=== PATIENT | male | born 1980 | race Caucasian/White ===

== ENCOUNTER 2021-06-08 11:55 | Emergency (ER) | payer SELFPAY ==
[2021-06-08] MEDS ORDERED: diphenhydrAMINE 50 MG/ML SDV IVPUSH PRN (12:30)
[2021-06-08] MEDS ORDERED: methylPREDNISolone Sodium Succinate 125 MG/2 ML SDV IVPUSH PRN (12:30)
[2021-06-08] MEDS ORDERED: EPINEPHrine 1 MG/ML SDV IM PRN (12:30)
[2021-06-08] MEDS ORDERED: Sodium Chloride 0.9% 10 ML Syringe FLUSH SCH (12:30)
[2021-06-08] MEDS ORDERED: Dexamethasone 10 MG/ML SDV IVPUSH ONE (12:30)
[2021-06-08] MEDS ORDERED: Famotidine 20 MG/2 ML SDV IVPUSH PRN (12:30)
[2021-06-08] MEDS ORDERED: Sodium Chloride 0.9% 10 ML Syringe FLUSH PRN (12:30)
--- NOTE | 2021-06-08 12:43 | EDM.PDOC ---
ED HPI GENERAL MEDICAL PROBLEM - General Chief Complaint: Respiratory Problem Stated Complaint: COVID +/WORSENING SYMPTOMS Time Seen by Provider: 06/08/21 12:17 Source of Information: Reports: Patient, RN Notes Reviewed History Limitations: Reports: No Limitations - History of Present Illness INITIAL COMMENTS - FREE TEXT/NARRATIVE: Patient is a 41-year-old male who presents to the ED for his ongoing COVID-19 illness. Patient started to get ill Friday, June 04, 2021, went to the [place] walk-in clinic on June 05, 2021 and was told he had COVID-19. Patient notes since then he has had increasing symptoms, his fever has been somewhat high at home, roughly 100.3 F, he has been taking some acetaminophen for this and his last dose was last night. Checked his oxygen this morning, and he states that his oximeter read 85%, so he became concerned and presented to the ER for management. Patient does have a dry intermittent cough, he is not having any sputum production with this. Patient states he has had fever, but no chills, he has had a cough with shortness of breath, but no nausea/vomiting/diarrhea. 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 Right Eye Pain Score (Numeric/FACES): 6 Chest Pain Score (Numeric/FACES): 4 - Related Data Allergies Allergy/AdvReac Type Severity Reaction Status Date / Time No Known Allergies Allergy Verified 06/08/21 12:15 Home Meds: Home Meds Escitalopram [Lexapro] 30 mg PO DAILY 06/08/21 [History] Gabapentin [Neurontin] 300 mg PO DAILY 06/08/21 [History] dexAMETHasone [Decadron] 6 mg PO DAILY 9 Days #9 tablet 06/08/21 [Rx] Past Medical History Psychiatric History: Reports: Anxiety, Depression - Infectious Disease History Infectious Disease History: Reports: Novel Coronavirus (06/05/2021) Social & Family History - Tobacco Use Tobacco Use Status *Q: Never Tobacco User - Caffeine Use Caffeine Use: Reports: Coffee, Soda, Tea - Recreational Drug Use Recreational Drug Use: No ED ROS GENERAL - Review of Systems Review Of Systems: Comprehensive ROS is negative, except as noted in HPI. ED EXAM, GENERAL - Physical Exam Exam: See Below Exam Limited By: No Limitations General Appearance: Alert, WD/WN, No Apparent Distress Respiratory/Chest: No Respiratory Distress, Lungs Clear, Normal Breath Sounds, No Accessory Muscle Use, Chest Non-Tender Cardiovascular: Normal Peripheral Pulses, Regular Rate, Rhythm, No Edema Peripheral Pulses: 2+: Radial (L), Radial (R) Extremities: Normal Inspection, Normal Capillary Refill Neurological: Alert, Oriented, Normal Cognition, No Motor/Sensory Deficits Psychiatric: Normal Affect, Normal Mood Skin Exam: Warm, Dry, Intact, Normal Color, No Rash #1 Interpretation EKG Date: 06/08/21 Time: 12:47 Rhythm: NSR Rate (Beats/Min): 76 Hunter: LAD-Left Hunter Deviation (-17 ) P-Wave: Present QRS: RBBB (atypical) ST-T: Normal QT: Normal Comparison: NA - No Prior EKG EKG Interpretation Comments: IVCD Course - Vital Signs Last Recorded V/S: Last Vital Signs Temp 98.0 F 06/08/21 12:19 Pulse 75 06/08/21 12:19 Resp 20 06/08/21 12:19 BP 118/80 06/08/21 12:19 Pulse Ox 94 L 06/08/21 12:19 - Orders/Labs/Meds Orders: Active Orders 24 hr Category Date Time Status Peripheral IV Care [RC] . DIRECTED Care 06/08/21 12:30 Active Vital Signs [RC] Q15M Care 06/08/21 12:30 Active Chest 1V Frontal [CR] Stat Exams 06/08/21 12:29 Taken EPINEPHrine [Adrenalin] Med 06/08/21 12:30 Active 0.3 mg IM ONETIME PRN Famotidine [Pepcid] Med 06/08/21 12:30 Active 20 mg IVPUSH ONETIME PRN Sodium Chloride 0.9% [Saline Flush] Med 06/08/21 12:30 Active 10 ml FLUSH ASDIRECTED PRN Sodium Chloride 0.9% [Saline Flush] Med 06/08/21 12:30 Active 30 ml FLUSH ASDIRECTED diphenhydrAMINE [Benadryl] Med 06/08/21 12:30 Active 50 mg IVPUSH ONETIME PRN methylPREDNISolone Sod Succ [Solu-MEDROL] Med 06/08/21 12:30 Active 125 mg IVPUSH ONETIME PRN Peripheral IV Insertion Adult [OM.PC] Routine Oth 06/08/21 12:30 Ordered Medication Orders Diphenhydramine HCl (Diphenhydramine 50 Mg/Ml Sdv) 50 mg IVPUSH ONETIME PRN PRN Reason: hypersensitivity reaction Epinephrine HCl (Epinephrine 1 Mg/Ml Sdv) 0.3 mg IM ONETIME PRN PRN Reason: hypersensitivity reaction Famotidine (Famotidine 20 Mg/2 Ml Sdv) 20 mg IVPUSH ONETIME PRN PRN Reason: hypersensitivity reaction Methylprednisolone Sodium Succinate (Methylprednisolone Sodium Succinate 125 Mg/2 Ml Sdv) 125 mg IVPUSH ONETIME PRN PRN Reason: hypersensitivity reaction Sodium Chloride (Sodium Chloride 0.9% 10 Ml Syringe) 30 ml FLUSH ASDIRECTED WINSTON Sodium Chloride (Sodium Chloride 0.9% 10 Ml Syringe) 10 ml FLUSH ASDIRECTED PRN PRN Reason: Keep Vein Open Labs: Laboratory Tests 06/08/21 06/08/21 06/08/21 Range/Units 13:00 13:00 13:00 WBC 4.61 (4.23-9.07) K/mm3 RBC 5.21 (4.63-6.08) M/mm3 Hgb 16.9 (13.7-17.5) gm/dl Hct 50.2 (40.1-51.0) % MCV 96.4 H (79.0-92.2) fl MCH 32.4 H (25.7-32.2) pg MCHC 33.7 (32.2-35.5) g/dl RDW Std Deviation 48.2 H (35.1-43.9) fL Plt Count 96 L (163-337) K/mm3 MPV 12.0 (9.4-12.3) fl Neut % (Auto) 60.8 (34.0-67.9) % Lymph % (Auto) 28.6 (21.8-53.1) % [place] % (Auto) 10.0 (5.3-12.2) % Eos % (Auto) 0 L (0.8-7.0) Baso % (Auto) 0.4 (0.1-1.2) % Neut # (Auto) 2.80 (1.78-5.38) K/mm3 Lymph # (Auto) 1.32 (1.32-3.57) K/mm3 [place] # (Auto) 0.46 (0.30-0.82) K/mm3 Eos # (Auto) 0.00 L (0.04-0.54) K/mm3 Baso # (Auto) 0.02 (0.01-0.08) K/mm3 Manual Slide Review Abnormal smear PT 10.1 (9.7-12.0) SECONDS INR 0.94 APTT 27.6 (21.7-31.4) SECONDS D-Dimer, Quantitative 0.73 H (0.19-0.50) mg/L Sodium (136-145) mEq/L Potassium (3.5-5.1) mEq/L Chloride (98-107) mEq/L Carbon Dioxide (21-32) mEq/L Anion Gap (5-15) BUN (7-18) mg/dL Creatinine (0.7-1.3) mg/dL Est Cr Clr Drug Dosing mL/min Estimated GFR (MDRD) (>60) mL/min BUN/Creatinine Ratio (14-18) Glucose (70-99) mg/dL Calcium (8.5-10.1) mg/dL Magnesium (1.8-2.4) mg/dL Total Bilirubin (0.2-1.0) mg/dL AST (15-37) U/L ALT (16-63) U/L Alkaline Phosphatase (46-116) U/L Troponin I (0.00-0.056) ng/mL C-Reactive Protein 2.7 H* (<1.0) mg/dL NT-Pro-B Natriuret Pep (0-125) pg/mL Total Protein (6.4-8.2) g/dl Albumin (3.4-5.0) g/dl Globulin gm/dL Albumin/Globulin Ratio (1-2) 06/08/21 06/08/21 Range/Units 13:00 13:00 WBC (4.23-9.07) K/mm3 RBC (4.63-6.08) M/mm3 Hgb (13.7-17.5) gm/dl Hct (40.1-51.0) % MCV (79.0-92.2) fl MCH (25.7-32.2) pg MCHC (32.2-35.5) g/dl RDW Std Deviation (35.1-43.9) fL Plt Count (163-337) K/mm3 MPV (9.4-12.3) fl Neut % (Auto) (34.0-67.9) % Lymph % (Auto) (21.8-53.1) % [place] % (Auto) (5.3-12.2) % Eos % (Auto) (0.8-7.0) Baso % (Auto) (0.1-1.2) % Neut # (Auto) (1.78-5.38) K/mm3 Lymph # (Auto) (1.32-3.57) K/mm3 [place] # (Auto) (0.30-0.82) K/mm3 Eos # (Auto) (0.04-0.54) K/mm3 Baso # (Auto) (0.01-0.08) K/mm3 Manual Slide Review PT (9.7-12.0) SECONDS INR APTT (21.7-31.4) SECONDS D-Dimer, Quantitative (0.19-0.50) mg/L Sodium 142 (136-145) mEq/L Potassium 3.6 (3.5-5.1) mEq/L Chloride 103 (98-107) mEq/L Carbon Dioxide 33 H (21-32) mEq/L Anion Gap 9.6 (5-15) BUN 9 (7-18) mg/dL Creatinine 0.9 (0.7-1.3) mg/dL Est Cr Clr Drug Dosing 118.99 mL/min Estimated GFR (MDRD) > 60 (>60) mL/min BUN/Creatinine Ratio 10.0 L (14-18) Glucose 86 (70-99) mg/dL Calcium 8.5 (8.5-10.1) mg/dL Magnesium 2.4 (1.8-2.4) mg/dL Total Bilirubin 0.5 (0.2-1.0) mg/dL AST 35 (15-37) U/L ALT 28 (16-63) U/L Alkaline Phosphatase 65 (46-116) U/L Troponin I < 0.017 (0.00-0.056) ng/mL C-Reactive Protein (<1.0) mg/dL NT-Pro-B Natriuret Pep 28 (0-125) pg/mL Total Protein 7.5 (6.4-8.2) g/dl Albumin 3.4 (3.4-5.0) g/dl Globulin 4.1 gm/dL Albumin/Globulin Ratio 0.8 L (1-2) Meds: Medications Generic Name Dose Route Start Last Admin Trade Name Freq PRN Reason Stop Dose Admin Diphenhydramine HCl 50 mg 06/08/21 12:30 Diphenhydramine 50 Mg/Ml Sdv IVPUSH ONETIME PRN hypersensitivity reaction Epinephrine HCl 0.3 mg 06/08/21 12:30 Epinephrine 1 Mg/Ml Sdv IM ONETIME PRN hypersensitivity reaction Famotidine 20 mg 06/08/21 12:30 Famotidine 20 Mg/2 Ml Sdv IVPUSH ONETIME PRN hypersensitivity reaction Methylprednisolone Sodium Succinate 125 mg 06/08/21 12:30 Methylprednisolone Sodium Succinate 125 Mg/2 Ml Sdv IVPUSH ONETIME PRN hypersensitivity reaction Sodium Chloride 30 ml 06/08/21 12:30 Sodium Chloride 0.9% 10 Ml Syringe FLUSH ASDIRECTED WINSTON Sodium Chloride 10 ml 06/08/21 12:30 Sodium Chloride 0.9% 10 Ml Syringe FLUSH ASDIRECTED PRN Keep Vein Open Discontinued Medications Generic Name Dose Route Start Last Admin Trade Name Freq PRN Reason Stop Dose Admin Acetaminophen 975 mg 06/08/21 13:48 06/08/21 13:54 Acetaminophen 325 Mg Tab PO 06/08/21 13:49 975 mg NOW ONE Administration Dexamethasone 6 mg 06/08/21 12:30 06/08/21 13:04 Dexamethasone 10 Mg/Ml Sdv IVPUSH 06/08/21 12:31 6 mg ONETIME ONE Administration CASIRIVIMAB/IMDEVIMAB 10 ml/ 110 mls @ 220 mls/hr 06/08/21 12:30 06/08/21 13:08 Sodium Chloride IV 06/08/21 12:59 220 mls/hr ONETIME ONE Administration - Re-Assessments/Exams Free Text/Narrative Re-Assessment/Exam: 06/08/21 12:42 Patient presents to the ER for his ongoing COVID-19 symptoms, we will go ahead and get IV placed, get a chest x-ray, and some basic labs for ongoing management. Patient states that he has had some issues at time with elevated BP, but is not medication for this. I spoke with the patient to provide information about Regeneron treatment. I offered them the "Patient and caregiver NATALIA Regeneron fact sheet" to read and review. I stated that the drug has been approved by an emergency use authorization (EUA) process and has not been fully FDA reviewed or approved. The patient meets the EUA requirements. I discussed there are other potential treatment options that are currently not FDA approved to treat COVID-19. I did offer an opportunity to ask questions and all questions were answered. The patient voiced understanding and agreed to proceed with the treatment. 06/08/21 13:32 This x-ray does seem concerning for COVID pneumonia, there are some diffuse patchy infiltrates, it seems to be worse on the right side more so than the left. Official radiology read is still pending however. 06/08/21 14:11 His D-dimer did come back elevated at 0.77. Again the patient is infected with COVID-19, which would account for the elevated D-dimer. Radiology read is still pending however Dr. Andrew reviewed the x-ray with me, and does agree that there does appear to be a right middle and right lower lobe infiltrate, compatible with COVID-19 pneumonia. The patient's observation status will be done in around 2:40 PM, and at that time we will go ahead and discharge him home with a course of oral dexamethasone. Departure - Departure Time of Disposition: 14:12 Disposition: Home, Self-Care 01 Condition: Good Clinical Impression: COVID-19 - Discharge Information *PRESCRIPTION DRUG MONITORING PROGRAM REVIEWED*: No *COPY OF PRESCRIPTION DRUG MONITORING REPORT IN PATIENT AIMEE: No Prescriptions: dexAMETHasone [Decadron] 6 mg PO DAILY 9 Days #9 tablet Instructions: COVID-19 Frequently Asked Questions, 10 Things You Can Do to Manage Your COVID-19 Symptoms at Home - [facility] (04/12/2020) Referrals: PCP,None [Primary Care Provider] - Forms: ED Department Discharge Additional Instructions: You were seen in the ER today for ongoing and/or worsening respiratory symptoms. Your chest x-ray showed signs of a viral [id number] rgeaneumonia at this time which is typical for ongoing COVID-19 illness. Your oxygen levels were great at 95-96% on room air. You were given IV Regeneronon therapy at today's ER visit, this is a monoclonal antibody, that is thought to lessen the disease process, to make you less sick for a little less long. Please try to increase your oral fluid intake, and eat multiple small meals throughout the day, to keep yourself healthy. You need to keep yourself nourished in order to fight off this disease. You can try a liquid diet like gatorade/powerade as well to get your electrolytes. You may take 500 mg Tylenol every hours 6 hours for pain/fever relief. Do not exceed 4000 mg Tylenol in a 24-hour time span. However, running a fever is your body's natural response to illness, and it allows the body to develop antibodies to disease, we are recommending trying to limit the use of Tylenol as much as possible to allow your body's natural immune response. You were given a prescription for dexamethasone, dosing will be 1 tablet daily until gone. You were given a dose in your IV at today's visit. You do not need to continue taking this medication until tomorrow. This medication was electronically prescribed to the [facility] pharmacy located on [facility] [facility], They do have a drive up window, so that you can pick up worker your prescriptions. Continue to use your pulse oximeter and monitor your oxygen levels at home, you should place the monitor on your finger, and sit in a calm, quiet position for a few minutes and then record the number that is on the screen. If this consistently below 90% on room air without movement, this would be cause for concern to come back to the hospital for further management of your COVID-19 disease. Please follow all guidance set forth from [facility], regarding isolation purposes for your disease process. Sepsis Event Note (ED) - Focused Exam Vital Signs: Vital Signs Temp Pulse Resp BP Pulse Ox 06/08/21 12:19 98.0 F 75 20 118/80 94 L - My Orders Last 24 Hours: My Active Orders 06/08/21 12:29 Chest 1V Frontal [CR] Stat 06/08/21 12:30 Peripheral IV Care [RC] . DIRECTED Vital Signs [RC] Q15M EPINEPHrine [Adrenalin] 0.3 mg IM ONETIME PRN Famotidine [Pepcid] 20 mg IVPUSH ONETIME PRN Sodium Chloride 0.9% [Saline Flush] 10 ml FLUSH ASDIRECTED PRN Sodium Chloride 0.9% [Saline Flush] 30 ml FLUSH ASDIRECTED diphenhydrAMINE [Benadryl] 50 mg IVPUSH ONETIME PRN methylPREDNISolone Sod Succ [Solu-MEDROL] 125 mg IVPUSH ONETIME PRN Peripheral IV Insertion Adult [OM.PC] Routine - Assessment/Plan Last 24 Hours: My Active Orders 06/08/21 12:29 Chest 1V Frontal [CR] Stat 06/08/21 12:30 Peripheral IV Care [RC] . DIRECTED Vital Signs [RC] Q15M EPINEPHrine [Adrenalin] 0.3 mg IM ONETIME PRN Famotidine [Pepcid] 20 mg IVPUSH ONETIME PRN Sodium Chloride 0.9% [Saline Flush] 10 ml FLUSH ASDIRECTED PRN Sodium Chloride 0.9% [Saline Flush] 30 ml FLUSH ASDIRECTED diphenhydrAMINE [Benadryl] 50 mg IVPUSH ONETIME PRN methylPREDNISolone Sod Succ [Solu-MEDROL] 125 mg IVPUSH ONETIME PRN Peripheral IV Insertion Adult [OM.PC] Routine
[2021-06-08] MEDS ORDERED: Acetaminophen 325 MG Tab PO ONE (13:48)
--- NOTE | 2021-06-08 15:13 | CR ---
Chest: Frontal view of the chest was obtained. Comparison: No previous study. Patchy increased density within the right mid and right lower lung are seen. Lungs are otherwise clear. Heart size and mediastinum are normal. Old fracture is seen within the mid right clavicle which may be slightly ununited. No other acute osseous abnormality is seen. Impression: 1. Focal area of density within the right mid and right lower lung. Findings most likely represent COVID pneumonia. 2. Questionable old but ununited mid right clavicle fracture. Diagnostic code #3
== END 2021-06-08 15:38 | disposition home or self-care (01) ==
LOC: JD.ED 11:55
DX: U07.1 COVID-19 (principal); I45.10 Unspecified right bundle-branch block; Z79.899 Other long term (current) drug therapy
CPT/HCPCS: 36415; 71045; 80053; 83735; 83880; 84484; 85025; 85379; 85610; 85730; 86140; 93005; 96374; 99284; A9270; J1100; M0243; Q0243; 93010; 99283